=== PATIENT | female | born 1975 | race Caucasian/White ===

== ENCOUNTER 2023-02-14 07:47 | Outpatient (OUT) | payer OTHER, SELFPAY ==
[2023-02-14 08:41] LABS: D Dimer 0.39 mg/L FEU (<=0.59)
== END 2023-02-14 07:48 | disposition home or self-care (01) ==
LOC: LAB 07:51
PROVIDERS: PCP Internal Medicine; Visit Provider Internal Medicine
DX: M79.605 Pain in left leg (principal)
CPT/HCPCS: 36415; 85378

== ENCOUNTER 2024-12-23 13:50 | Outpatient (OUT) | payer OTHER, SELFPAY ==
--- OUTSIDE RECORDS SUMMARY | 2020-07-21 04:30 | XMS_ITS | Continuity of Care Document ---
Author Organization [facility] Address [address] [place] [address] Phone Care Team Providers Care Unit Technician Name Role Phone Regan Bhatti Unavailable Unavailable [...] Diagnoses Date Provider Providers Copied on Encounter [facility], [address] [place] [address], [id number], [place] tel:[phone] COVID ECHD No Information Fredis Bee. [address] [place], [place], [id number], [place]. tel:[phone] [facility], [address] [place] [address], [id number], tel:[phone] COVID ECHD No Information Fredis Bee. [address] [place], [place], [id number], [place]. tel:[phone] OFFICE/OUTPATI ENT VISIT, [facility], [address] [place], [place], [id number], [place] tel:[phone] [facility] No Information Visci DO Regan. [address] [place], [place], [id number], [place]. tel:[phone] OFFICE/OUTPATI ENT VISIT, [facility], [address] [place], [place], [id number], [place] tel:[phone] [facility] No Information Visci DO Spears. [address] [place], [place], [id number], [place]. tel:[phone] [facility], [address] [place], [place], [id number], [place] tel:[phone] [facility] No Information Visci DO Regan. [address] [place], [place], [id number], [place]. tel:[phone] [facility], [address] [place], [id number], [place] tel:[phone] [facility] No Information Visci DO Spears. [address] [place], [place], [id number], [place]. tel:[phone] OFFICE/OUTPATI ENT VISIT, [facility], [address] [place], [place], [id number], [place] tel:[phone] [facility] No Information Visci DO Spears. [address] [place], [place], [id number], [place]. tel:[phone] Family History Family Member Type Diagnosis Age [...] Record Payers Payer name Insurance type Covered green party ID Carlos michael(s) [employer] CI [id number] [employer] [id number] [employer] [id number] Social History Type Description Quantity Date Captured [...]
--- OUTSIDE RECORDS SUMMARY | 2024-12-23 13:52 | XMS_ITS | Clinical Summary ---
Author Organization [facility] Address [address] [place] [address] Care Team Providers Care Cloth Designer Name Role Phone Mckay Leo DO Primary Care Provid er Allergies No known active allergies Medications FLUTICASONE PROPIONATE NASAL Use in the nose. Active fluticasone-salme terol (ADVAIR DISKUS) 500-50 mcg/dose dsdv Inhale 1 Puff as instructed twice daily. Active montelukast (SINGULAIR) 10 mg tablet Take 10 mg by mouth daily at bedtime. Active tiotropium bromide (SPIRIVA RESPIMAT INHALATION) Inhale as instructed. Active mv-min/iron/folic /calcium/vitK (WOMEN'S MULTIVITAMIN ORAL) Take by mouth. Activ e Immunizations Immunization Administration Dates Next Due hepatitis B (HepB) vaccine, 3-dose series, age 20+ yr (ENGERIX-B, RECOMBIVAX HB) 07/28/2010,01/05/2010,12/07/2009 influenza (IIV4) vaccine, ag e 6 mo - 64 yr, quadrivalent, PF (AFLURIA, FLUARIX, FLULAVAL, FLUZONE) 05/02/2021,07/01/2019 tetanus diphtheria (Td) vacc ine, adult, unspecified formulation 03/12/2002 Family History Medical History Relation Comments Cancer Father Hyperlipidemia Father Prostate Cancer Father Diabetes Maternal Grandmother Diabetes Mother Diabetes Paternal Grandfather Relation Status Comments Father Maternal Grandmother Mother Paternal Grandfather Social History Tobacco Use Types Packs/Day Years Used Date Smoking Tobacco: Never Smokeless Tobacco: Never Alcohol Use Standard Drinks/Week Comments Not Currently 0 (1 standard drink = 0.6 oz pur e alcohol) Area Deprivation Index Answer Date Jared rded National Score (1-100), lower number is lower ri sk 64 07/08/2022 State Score (1-10), lower number is lower risk N ot on file 07/08/2022 Data from: https://www.neighborhoodatlas.medicine.[facility]/. Last address used for calculation [address] 07/08/2022 Comments No Sex and Gender Information Value Date Recorded Sex Assigned at Not on file Legal Sex Female 9:51 AM EDT Gender Identity Not on file Sexual Orientation Not on file Last Filed Vital Signs Vital Sign Reading Time Taken Comments Blood Pressure 133/74 12/12/2021 11:14 AM EDT Pulse 76 12/12/2021 11:14 AM EDT Temperature 36.6 C (97.8 F) 12/12/2021 11:14 AM EDT Respiratory Rate 18 12/12/2021 11:14 AM EDT Oxygen Saturation 99% 12/12/2021 11:14 AM EDT Inhaled Oxygen Concentration - - Weight 81.5 kg (179 lb 9.6 oz) 12/12/2021 11:14 AM EDT Height 165.1 cm (5' 5 ) 12/12/2021 11:14 AM EDT Body Mass Index 29.89 12/12/2021 11:14 AM EDT Plan of Treatment Health Maintenance Due Date Last Done Comments Anxiety Screening 1993 Depression Screening 1993 HIV Screening 1993 Hepatitis C Screening 1993 Cervical Cancer Screening 01/13/1996 DTaP,Tdap,Td Vaccine (1 - Tdap) 03/13/2002 [address] Colonography 01/13/2020 Cologuard (FIT-DNA) 01/13/2020 Colonoscopy 01/13/2020 Colorectal Cancer Screening 01/13/2020 Fecal Occult Blood 01/13/2020 Lipid Screening 01/13/2020 Sigmoidoscopy 01/13/2020 Covid-19 Vaccine ( season) 2024 05/02/2021, 07/21/2020, 06/23/2020 Diabetes Screening 12/12/2024 12/12/2021 Influenza Vaccine (#1) 2025 05/02/2021, 2019 Hepatitis B Vaccine Completed 07/28/2010, 01/05/2010, 12/07/2009 Procedures Procedure Name Priority Date/Time Associated Diagnosis Comments COMPREHENSIVE METABOLIC PANEL Routine 12/12/2021 11:10 AM EDT Neutrophilia from Last 3 Months or Most Recently Relevant to Health Maintenance Results * COMP METABOLIC PANEL (12/12/2021 11:10 AM EDT) Pathologist [facility] Protein, Total 7.9 6.3 - 8.0 g/dL 12/12/2021 11:50 AM EDT [facility] Albumin 4.8 3.9 - 4.9 g/dL 12/12/2021 11:50 AM EDT [facility] Calcium, Total 10.0 8.5 - 10.2 mg/dL 12/12/2021 11:50 AM EDT [facility] Bilirubin, Total 0.2 0.2 - 1.3 mg/dL 12/12/2021 11:50 AM EDT [facility] Alkaline Phosphatase 71 34 - 123 U/L 12/12/2021 11:50 AM EDT [facility] AST 20 13 - 35 U/L 12/12/2021 11:50 AM EDT [facility] ALT 22 7 - 38 U/L 12/12/2021 11:50 AM EDT [facility] Glucose 86 74 - 99 mg/dL 12/12/2021 11:50 AM EDT [facility] Comment: The [place] Diabetes Association (ADA) provides guidance for cutoff values for fasting glucose and random glucose. The ADA defines fasting as no caloric intake for at least 8 hours. Fasting plasma glucose results between 100 to 125 mg/dL indicate increased risk for diabetes (prediabetes). Fasting plasma glucose results greater than or equal to 126 mg/dL meet the criteria for diagnosis of diabetes. In the absence of unequivocal hyperglycemia, results should be confirmed by repeat testing. In a patient with classic symptoms of hyperglycemia or hyperglycemic crisis, random plasma glucose results greater than or equal to 200 mg/dL meet the criteria for diagnosis of diabetes. Reference: Standards of Medical Care in Diabetes 2016, [place] Diabetes Association. Diabetes Care. 2016.39(Suppl 1). BUN 11 7 - 21 mg/dL 12/12/2021 11:50 AM EDT [facility] Creatinine 0.80 0.58 - 0.96 mg/dL 12/12/2021 11:50 AM EDT [facility] Sodium 136 136 - 144 mmol/L 12/12/2021 11:50 AM EDT [facility] Potassium 4.1 3.7 - 5.1 mmol/L 12/12/2021 11:50 AM EDT [facility] Chloride 101 97 - 105 mmol/L 12/12/2021 11:50 AM EDT [facility] CO2 26 22 - 30 mmol/L 12/12/2021 11:50 AM EDT [facility] Anion Gap 9 9 - 18 mmol/L 12/12/2021 11:50 AM EDT [facility] Estimated Glomerular Filtration Rate 92 >=60 mL/min/1.7 3m 12/12/2021 11:50 AM EDT [facility] Comment:Estimated Glomerular Filtration Rate (eGFR) is calculated using the 2020 CKD-EPI creatinine equation. This equation utilizes serum creatinine, sex, and age as parameters. The creatinine assay has traceable calibration to isotope dilution- mass spectrometry. Refer to KDIGO guidelines for clinical interpretation. In patients with unstable renal function, e.g. those with acute kidney injury, the eGFR may not accurately reflect actual GFR. Blood BLOOD SPECIMEN / Unknown Venipuncture / Unknown 12/12/2021 11:10 AM EDT 12/12/2021 11:10 AM EDT us Basil Seay MD LABORATORY Final Result [facility] [address] [place] [address] from Last 3 Months or Most Recently Relevant to Health Maintenance Insurance [employer] PPO Care Teams Cloth Designer Relationship Specialty Start Date End Date Mckay Leo DO [address] [place] [address] PCP - General Family Medicine 12/04/21
--- OUTSIDE RECORDS SUMMARY | 2024-12-23 13:52 | XMS_ITS | Encounter Summary ---
Author Organization [facility] Address [address] [facility] [place] [address] Care Team Providers Care Pension Examiner Name Role Phone Mckay Leo DO Primary Care Provider [phone] Dallin Diana DO Unavailable [phone] Dallin Strauss DO Unavailable [phone] Encounter Details Date Type Department Care Team (Late st Contact Info) Description 09/11/2024 Abstract [facility] [address] [place] [address] Marialuisa Garland DO [address] [place] [address] Social History Tobacco Use Types Packs/Day Years Used Date Smoking Tobacco: Never Smokeless Tobacco: Never Alcohol Use Standard Drinks/Week Comments Not Currently 0 (1 standard drink = 0.6 oz pur e alcohol) Comments Unknown Sex and Gender Information Value Date Recorded Sex Assigned at Not on file Legal Sex Female 7:03 PM EDT Gender Identity Not on file Sexual Orientation Not on file documented as of this encounter Plan of Treatment Upcoming Encounters Date Type Department Care Team (Late st Contact Info) Description 02/25/2025 3:45 PM EDT Office Visit [facility] [address] [place] [address] Marialuisa Garland, DO [address] [place] [address] 05/25/2025 8:45 AM EST Office Visit [facility] [place] [address] [place] [address] Dallni Strauss, DO [address] [place] [address] documented as of this encounter Visit Diagnoses Not on filedocumented in this encounter Care Teams Pension Examiner Relationship Specialty Start Date End Date Mckay Leo, DO [address] [place] [address] PCP - General Family Medicine 10/16/22 Dallin Diana, DO [address] [place] [address] Referring Physician Internal Medicine 07/22/24 Dallin Strauss, DO [address] [place] [address] Otolaryngology 07/22/24 documented as of this encounter
--- OUTSIDE RECORDS SUMMARY | 2024-12-23 13:52 | XMS_ITS | Clinical Summary ---
Author Organization [facility] Address [address] [facility] [place] [address] Care Team Providers Care Hotel Operation Manager Name Role Phone Mckay Leo DO Primary Care Provider [phone] Dallin Diana DO Unavailable [phone] Dallin Strauss DO Unavailable Allergies Active Allergy Reactions Criticality Noted Date Comments Cephalexin Rash Low 03/29/2023 Medications albuterol HFA (Ventolin HFA) 90 mcg/act inhalerIndicatio ns:Moderate persistent asthma without complication (HCC) Inhale 2 puffs every 4 (four) hours if needed for wheezing or shortness of breath 18 g 5 4 Active Albuterol-Budeso nide (Airsupra) 90-80 MCG/ACT aerosolIndicatio ns:Moderate persistent asthma without complication (HCC) Inhale 2 puffs every 4 (four) hours if needed (shortness of breath) 10.7 g 5 4 Active montelukast (Singulair) 10 MG tablet 4 Active fluticasone (Flonase) 50 MCG/ACT nasal spray 1 (one) time each day at the same time Active zolpidem (Ambien) 5 MG tablet Take 5 mg by mouth as needed at bedtime for sleep 5 Active albuterol (2.5 MG/3ML) 0.083% nebulizer solutionIndicati ons:Moderate persistent asthma without complication (HCC) Take 3 mL (2.5 mg) by nebulization 4 (four) times a day as needed for wheezing or shortness of breath 225 mL 5 5 026 Active Fluticasone-Umec lidin-Vilant (Trelegy Ellipta) 200-62.5-25 MCG/ACT aerosol powderIndication s:Moderate persistent asthma without complication (HCC) Inhale 1 puff Daily 3 each 3 5 Active Active Problems No known active problems Resolved Problems Problem Noted Date Diagnosed Date Resolved Date Asthma 07/22/2024 07/22/2024 Essential thrombocythemia 07/22/2024 Leukocytosis 07/22/2024 07/22/2024 Obesity (BMI 30-39.9) 07/22/20242024 Thyroid nodule 07/22/2024 07/22/2024 Overview (07/22/2024): US: right 2.3cm predominantly solid, 1.2cm solid, 1.4cm cystic, left anechoic 6mm, 7mm, and 4mm nodules. - 06/2024 Encounters Date Type Department Care Team Description 11/03/2024 8:30 AM EDT Office Visit [facility] [place] [address] [place] [phone] Dallin Strauss, Multiple thyroid nodules (Primary Dx); Status post partial thyroidectomy 11/03/2024 Bamboo flowsheet [facility] [place] [address] [place] [phone] Dallin Strauss, 11/03/2024 Travel 09/30/2024 Refill [facility] [address] [place] [address] Marialuisa Garland DO Moderate persistent asthma without complication (HCC) from Last 3 Months Immunizations Immunization Administration Dates Next Due Hep B, adult 07/28/2010,01/05/2010,12/07/2009 Influenza, Injectable, MDCK, preservative free 04/08/2018 Influenza, injectable, quadr ivalent, preservative free 03/22/2023,08/03/2022,05/02/2021,2019,07/01/2019 Influenza, seasonal, injecta ble, preservative free 04/06/2024 Td (adult), unspecified 03/12/2002 Family History Medical History Relation Name Comments Diabetes Mother Herminia Medeiros Relation Name Status Comments Mother Herminia Medeiros Social History Tobacco Use Types Packs/Day Years Used Date Smoking Tobacco: Never Smokeless Tobacco: Never Tobacco Cessation:Counseling Given: Not Answered Alcohol Use Standard Drinks/Week Comments Not Currently 0 (1 standard drink = 0.6 oz pur e alcohol) Comments Unknown Sex and Gender Information Value Date Recorded Sex Assigned at Not on file Legal Sex Female 7:03 PM EDT Gender Identity Not on file Sexual Orientation Not on file Last Filed Vital Signs Vital Sign Reading Time Taken Comments Blood Pressure 118/70 08/02/2022 12:00 PM EST Pulse 113 08/13/2024 3:44 PM EST Temperature - - Respiratory Rate - - Oxygen Saturation 98% 08/13/2024 3:44 PM EST Inhaled Oxygen Concentration - - Weight 84.8 kg (187 lb) 11/03/2024 8:19 AM EDT Height 162.6 cm (5' 4 ) 11/03/2024 8:19 AM EDT Body Mass Index 32.1 11/03/2024 8:19 AM EDT Plan of Treatment Upcoming Encounters Date Type Department Care Team (Late st Contact Info) Description 02/25/2025 3:45 PM EDT Office Visit [facility] [address] [place] [address] Marialuisa Garland DO [address] [place] [address] 05/25/2025 8:45 AM EST Office Visit [facility] [place] [address] [place] [address] Dallin Strauss, DO [address] [place] [address] Health Maintenance Due Date Last Done Comments CT Colonography 1975 Colonoscopy 1975 Colorectal Cancer Screening 1975 FIT-DNA 1975 FIT 1975 FOBT 1975 Sigmoidoscopy 1975 Pap Smear 01/13/1996 Cervical Cancer Screening 2005 HPV/Cotest 2005 Mammogram 01/06/2020 01/05/2019, 11/28/2018 Influenza Vaccine (#1) 2025 , 03/22/2023, 08/03/2022, Additional history exists Procedures Procedure Name Priority Date/Time Associated Diagnosis Comments TSH Routine 10/27/2024 7:46 AM EDT H/O partial thyroidectomy T4 (THYROXINE), TOTAL Routine 10/27/2024 7:46 AM EDT H/O partial thyroidectomy T3, TOTAL Routine 10/27/2024 7:46 AM EDT H/O partial thyroidectomy BI MAMMOGRAM DIAGNOSTIC BILATERAL Routine 01/05/2019 12:00 PM EDT Encounter for other screening for malignant neoplasm of breast Benign neoplasm of unspecified breast from Last 3 Months or Most Recently Relevant to Health Maintenance Results * T3 (10/27/2024 7:46 AM EDT) TRIIODOTHYRONINE (T3) TOTAL 1.36 0.87 - 1.78 ng/mL 10/27/2024 1:01 PM EDT [facility] Other Topography unknown / Unknown 10/27/2024 7:46 AM EDT 10/27/2024 7:46 AM EDT us Dallin Strauss DO LAB BLOOD ORDERABLES Final Result Performing Organization Address [facility]/ZIP Co de Phone Number [address] [address], [facility] [address] [place] [address] * TSH (10/27/2024 7:46 AM EDT) THYROID STIMULATING HORMONE 2.52 0.45 - 5.33 u[iU]/mL 10/27/2024 12:56 PM EDT [facility] Other Topography unknown / Unknown 10/27/2024 7:46 AM EDT 10/27/2024 7:46 AM EDT Dallin Strauss DO LAB BLOOD ORDERABLES Final Result Performing Organization Address [facility] Co de Phone Number [address] [address], [facility] [address] [place] [address] * T4 (10/27/2024 7:46 AM EDT) THYROXINE (T4) TOTAL 11.77 5.39 - 11.82 ug/dL 10/27/2024 12:58 PM EDT [facility] Other Topography unknown / Unknown 10/27/2024 7:46 AM EDT 10/27/2024 7:46 AM EDT us Dallin Strauss DO LAB BLOOD ORDERABLES Final Result Performing Organization Address City/[facility]/ZIP Co de Phone Number [address] [address], [facility] [address] [place] [address] * Bilateral diagnostic mammogram (01/05/2019 12:00 PM EDT) Anatomical Region Laterality Modality Breast Bilateral Mammography Narrative 01/05/2019 12:00 PM EDT PERFORMED AT [facility] LOCATION:[id number] Procedure Note CONVERSION, GENERIC / Mckay Leo, DO - 12/14/2022 PERFORMED AT [facility] LOCATION:[id number] Mckay Leo DO IMG BI PROCEDURES Final Re sult from Last 3 Months or Most Recently Relevant to Health Maintenance Insurance [employer] Care Teams Hotel Operation Manager Relationship Specialty Start Date End Date Mckay Leo, [address] [facility] [address] [place] [id number] PCP - General Family Medicine 10/16/22 Dallin Diana, [address] [facility] [address] [place] [address] Referring Physician Internal Medicine 07/22/24 Dallin Strauss DO [address] [place] [address] Otolaryngology 07/22/24
--- OUTSIDE RECORDS SUMMARY | 2024-12-23 13:52 | XMS_ITS | Encounter Summary ---
Author Organization [facility] Address [address] [place] [address] Care Team Providers Care Doctor Of Naturopathic Medicine Name Role Phone SatishMckay abad Alex DO Primary Care Provid er Source Comments In the event this information is protected by the Federal Confidentiality of Alcohol and Drug AbusePatient Records regulations: The Federal rules restrict any use of the information to criminally investigate or prosecute any alcohol or drug abuse patient.[facility] Encounter Details Date Type Department Care Team (Latest Contact Info) Description 12/04/2021 H&P External-NonCCF Provider, External, PA-C Do not enter address information under generic External Provider. Social History Tobacco Use Types Packs/Day Years Used Date Smoking Tobacco: Never Assessed Comments Unknown Sex and Gender Information Value Date Recorded Sex Assigned at Not on file Legal Sex Female 9:51 AM EDT Gender Identity Not on file Sexual Orientation Not on file documented as of this encounter Plan of Treatment Not on file documented as of this encounter Visit Diagnoses Not on filedocumented in this encounter Care Teams Doctor Of Naturopathic Medicine Relationship Specialty Start Date End Date Mckay Leo DO [address] [place] [address] PCP - General Family Medicine 12/04/21 documented as of this encounter
== END 2024-12-23 13:51 | disposition home or self-care (01) ==
LOC: US 13:51
PROVIDERS: PCP Internal Medicine; Visit Provider Nurse Practitioner Family
DX: M79.89 Other specified soft tissue disorders (principal); M79.661 Pain in right lower leg
CPT/HCPCS: 93971

== ENCOUNTER 2025-05-18 08:13 | Outpatient (OUT) | payer OTHER, SELFPAY ==
--- OUTSIDE RECORDS SUMMARY | 2020-07-21 03:30 | XMS_ITS | Continuity of Care Document ---
Author Organization [facility] Address [address] [place] [address] Phone Care Team Providers Care Elevator Serviceman Name Role Phone Regan Bhatti Unavailable Unavailable Procedures Procedure Date Moderna COVID-19 Vaccine Moderna COVID Vaccine Admin Dose 2 Moderna COVID Vaccine Admin Dose 1 Moderna COVID-19 Vaccine HEP B VACCINE, ADULT, IM OFFICE/OUTPATIENT VISIT, EST HEP B VACCINE, ADULT, IM OFFICE/OUTPATIENT VISIT, EST TB INTRADERMAL TEST TB INTRADERMAL TEST HEP B VACCINE, ADULT, IM OFFICE/OUTPATIENT VISIT, EST Advance Directives Directive Yes / No Effective Date File Name No Information Encounters Encounter Description Practice Location Reason(s) For Visit Diagnoses Date Provider Providers Copied on Encounter [facility], [address] [place] [address], [id number], [place] tel:[phone] COVID ECHD No Information Fredis Bee. [address] [place], [place], [id number], [place]. tel:[phone] [facility], [address] [place] [address], [id number], tel:[phone] COVID ECHD No Information Fredis Bee. [address] [place], [place], [id number], [place]. tel:[phone] OFFICE/OUTPATI ENT VISIT, [facility], [address] [place], [place], [id number], [place] tel:[phone] [facility] No Information Visci DO Regan. [address] [place], [place], [id number], [place]. tel:[phone] OFFICE/OUTPATI ENT VISIT, [facility], [address] [place], [place], [id number], [place] tel:[phone] [facility] No Information Visci DO Spears. [address] [place], [place], [id number], [place]. tel:[phone] [facility], [address] [place], [place], [id number], [place] tel:[phone] [facility] No Information Visci DO Regan. [address] [place], [place], [id number], [place]. tel:[phone] [facility], [address] [place], [place], [id number], [place] tel:[phone] [facility] No Information Visci DO Spears. [address] [place], [place], [id number], [place]. tel:[phone] OFFICE/OUTPATI ENT VISIT, [facility], [address] [place], [place], [id number], [place] tel:[phone] [facility] No Information Visci DO Spears. [address] [place], [place], [id number], [place]. tel:[phone] Family History Family Member Type Diagnosis Age At Onset No Information Immunizations Vaccine Date Status Comments Moderna COVID administered Source: New Im munization Record Moderna COVID administered Source: New Im munization Record Hep B (adult) administered Source: New Im munization Record Hep B (adult) administered Source: New Im munization Record Hep B (adult) administered Source: New Im munization Record Payers Payer name Insurance type Covered libertarian ID Carlos michael(s) [employer] [id number] [employer] CI [id number] [employer] CI [id number] Social History Type Description Quantity Date Captured Comments Alcohol Use Details Unknown Caffeine Use Details Unknown Tobacco Use Status No Information Smoking Status No Information Sex Female Sexual Orientation Straight or heterosexual Gender Identity Female Chief Complaint And Reason For Visit No Information Reason For Referral Reason For Referral No Information History Of Present Illness Encounter Date Complaint History Of Prese nt Illness No Information Functional Status Date Functional Assessmen t No Information Instructions Date Instruction Additional Infor mation No Information Assessments Type Assessment Date No Information Patient Care Teams Name Effective Dates (start - stop) Status Members No Information
--- OUTSIDE RECORDS SUMMARY | 2025-05-18 08:17 | XMS_ITS | Clinical Summary ---
Author Organization [facility] Address [address] [place] [id number] Care Team Providers Care Topography Technician Name Role Phone Mckay Leo Primary Care Provid er Allergies No known active allergies Medications MedicationSigDispense QuantityRefillsLast FilledStart DateEnd DateStatus FLUTICASONE PROPIONATE NASAL Use in the nose.Active fluticasone-salmeterol (ADVAIR DISKUS) 500-50 mcg/dose dsdv Inhale 1 Puff as instructed twice daily.Active montelukast (SINGULAIR) 10 mg tablet Take 10 mg by mouth daily at bedtime.Active tiotropium bromide (SPIRIVA RESPIMAT INHALATION) Inhale as instructed.Active mv-min/iron/folic/calcium/vitK (WOMEN'S MULTIVITAMIN ORAL) Take by mouth.Active Immunizations ImmunizationAdministration DatesNext Duehepatitis B (HepB) vaccine, 3-dose series, age 20+ yr (ENGERIX-B, RECOMBIVAX HB)07/28/2010,01/05/2010,12/07/2009 influenza (IIV4) vaccine, age 6 mo - 64 yr, quadrivalent, PF (AFLURIA, FLUARIX, FLULAVAL, FLUZONE)05/02/2021,07/01/2019tetanus diphtheria (Td) vaccine, adult, unspecified rwmufrhursn72/03/2002 Family History Medical HistoryRelationCommentsCancerFatherHyperlipidemiaFatherProstate Cancer FatherDiabetesMaternal GrandmotherDiabetesMotherDiabetesPaternal Grandfather RelationStatusCommentsFatherMaternal GrandmotherMotherPaternal Grandfather Social History Tobacco UseTypesPacks/DayYears UsedDateSmoking Tobacco: NeverSmokeless Tobacco: NeverAlcohol UseStandard Drinks/WeekCommentsNot Currently0 (1 standard drink = 0.6 oz pure alcohol)Area Deprivation IndexAnswerDate RecordedNational Score (1- 100), lower number is lower yghn522507/08/2022State Score (1-10), lower number is lower riskNot on file3Data from: https://www.neighborhoodatlas.medicine.[facility].edu/. Last address used for lav[address] W3CommentsNoSex and Gender InformationValueDate RecordedSex Assigned at BirthNot on fileLegal SexFemale 12/04/2021 9:51 AM EDTGender IdentityNot on fileSexual OrientationNot on file Last Filed Vital Signs Vital SignReadingTime TakenCommentsBlood Barsnkap235/7407 11:14 AM EDT Pzlkc038212/12/2021 11:14 AM RVZPzwwmbnheyg36.6 ??C (97.8 ??F)12/12/2021 11:14 AM EDTRespiratory Iful629512/12/2021 11:14 AM EDTOxygen Ctvjyuevag24%12/12/2021 11:14 AM EDTInhaled Oxygen Concentration--Wdithx86.5 kg (179 lb 9.6 oz)12/12/2021 11:14 AM JTAJgridf785.1 cm (5' 5 )12/12/2021 11:14 AM EDTBody Mass Index29.89 12/12/2021 11:14 AM EDT Plan of Treatment Health MaintenanceDue DateLast DoneCommentsAnxiety Hldzvjsup90/05/1993Depression Gysorinih46/05/1993HIV Kexlvrahb13/05/1993Hepatitis C Lfwdngmlz51/05/1993 Cervical Cancer Pbvjvbwoj80/05/1996DTaP,Tdap,Td Vaccine (1 - Tdap)03/13/2002 03/12/2002Mammogram Dbwolkmxp63/05/2015CT Hguucncbddyn29/05/2020Cologuard (FIT-DNA)01/13/20202952Bsvuseolfgz28/05/2020Colorectal Cancer Oknomeiwl31/05/2020 Fecal Occult Blood01/13/2020Lipid Iixvhzwap26/05/2254Otsjszbjxaxhi77/05/2020 Diabetes Qaywlzupb65/05/17363412/12/2021neumococcal Vaccine: 50+ (1 of 1 - PCV) 2025Shingrix Vaccine (1 of 2)5Covid-19 Vaccine (4 - season)/, 07/21/2020, 06/23/2020Influenza Vaccine (#1) /, 07/01/2019Hepatitis B McxepsnMntoohsou73/18/2011, 01/05/2010, 12/07/2009 Procedures Procedure NamePriorityDate/TimeAssociated DiagnosisCommentsCOMPREHENSIVE METABOLIC JWVBJDziheck69/05/2022 11:10 AM EDT Neutrophilia from Last 3 Months or Most Recently Relevant to Health Maintenance Results * COMP METABOLIC PANEL (12/12/2021 11:10 AM EDT)ComponentValueRef RangeTest MethodAnalysis TimePerformed AtPathologist SignatureProtein, Total7.96.3 - 8.0 g/dL12/12/2021 11:50 AM [facility]TNORTHCOAST [facility] LABAlbumin4.83.9 - 4.9 g/dL12/12/2021 11:50 AM EDTNORTUN[facility] LABCalcium, Total10.08.5 - 10.2 mg/dL12/12/2021 11:50 AM EDTNORTHCOAST [facility] LABBilirubin, Total0.20.2 - 1.3 mg/dL12/12/2021 11:50 AM [facility] LABAlkaline Axhmiggobow8594 - 123 U/L12/12/2021 11:50 AM EDTNOR[facility]CK[facility] ZVHVYC6189 - 35 U/L12/12/2021 11:50 AM [facility]TNORT[facility] FIZSKF925 - 38 U/L12/12/2021 11:50 AM EDT [facility] MMDWmuewgj1822 - 99 mg/dL12/12/2021 11:50 AM [facility] LABComment: The [place] Diabetes Association (ADA) provides guidance for cutoff values for fasting glucose andrandom glucose. The ADA defines fasting as no [...] Standards of Medical Care in Diabetes 2016, [place] [employer]. Diabetes Care. 2016.39(Suppl 1). FHF789 - 21 mg/dL12/12/2021 11:50 AM [facility] LAB Creatinine0.800.58 - 0.96 mg/dL12/12/2021 11:50 AM [facility] AZDYqjdzb252159 - 144 mmol/L12/12/2021 11:50 AM [facility] LABPotassium4.13.7 - 5.1 mmol/L12/12/2021 11:50 AM [facility] ZKCNnctntpi06711 - 105 mmol/L12/12/2021 11:50 AM [facility] LJHJE97225 - 30 mmol/L12/12/2021 11:50 AM [facility] LABAnion Gap99 - 18 mmol/L12/12/2021 11:50 AM [facility] LABEstimated Glomerular Filtration Rate92 >=60 mL/min/1.73m 12/12/2021 11:50 AM [facility] LABComment:Estimated Glomerular Filtration Rate (eGFR) is calculated using the 2020 CKD-EPI creatinine equation. This equation utilizes serum creatinine, sex, and age as parameters. The creatinine assay has traceable calibration to isotope dilution- mass spectrometry. Refer to KDIGO guidelines for clinical interpretation. In patients with unstable renal function, e.g. those with acute kidney injury, the eGFRmay not accurately reflect actual GFR.Specimen (Source)Anatomical Location / LateralityCollection Method / VolumeCollection TimeReceived TimeBloodBLOOD SPECIMEN / UnknownVenipuncture / Yvsmzds6812/12/2021 11:10 AM EDT12/12/2021 11:10 AM EDT Narrative Authorizing ProviderResult TypeResult StatusBrian Regan Seay MDLABORATORY Final ResultPerforming OrganizationAddressCity/State/ZIP CodePhone Number [facility] [address] [place] [address] from Last 3 Months or Most Recently Relevant to Health Maintenance Insurance Care Teams Team MemberRelationshipSpecialtyStart DateEnd Date Mckay Leo DO [address] [place] [address] PCP - GeneralFamily Medicine12/04/21
--- OUTSIDE RECORDS SUMMARY | 2025-05-18 08:17 | XMS_ITS | Clinical Summary ---
Author Organization [facility] Address [address] [facility] [place] [address] Care Team Providers Care Newspaper Delivery Driver Name Role Phone Mckay Leo DO Primary Care Provider [phone] Dallin Diana DO Unavailable Dallin Strauss DO Unavailable Allergies Active AllergyReactionsCriticalityNoted DlnkCqgennvhVxbovjhhtiBxpuMpl48/20/2023 Medications MedicationSigDispense QuantityRefillsLast FilledStart DateEnd DateStatus montelukast (Singulair) 10 MG tablet 4Active fluticasone (Flonase) 50 MCG/ACT nasal spray 1 (one) time each day at the same timeActive zolpidem (Ambien) 5 MG tablet Take 5 mg by mouth as needed at bedtime for sleep5Active albuterol (2.5 MG/3ML) 0.083% nebulizer solution Indications:Moderate persistent asthma without complication (HCC)Take 3 mL (2.5 mg) by nebulization 4 (four) times a day as needed for wheezing or shortness of breath 225 mL 503/506Active Sslpstigspj-Zqgwjvxxk-Ciwfat (Trelegy Ellipta) 200-62.5-25 MCG/ACT aerosol powder Indications:Moderate persistent asthma without complication (HCC)Inhale 1 puff Daily 3 each 5Active Albuterol-Budesonide (Airsupra) 90-80 MCG/ACT aerosol Indications:Moderate persistent asthma without complication (HCC)Inhale 2 puffs every 4 (four) hours if needed (shortness of breath) 10.7 g 5Active azithromycin (Zithromax) 250 MG tablet Indications:Moderate persistent asthma without complication (HCC)Take 2 by mouth today then 1 daily for 4 days 6 tablet 5Active Active Problems No known active problems Resolved Problems ProblemNoted DateDiagnosed DateResolved KjwcCehkbj13Essential grjcietcqgmdoxc66LeukocytosisObesity (BMI 30-39.9)Thyroid uevqxs00 Overview (07/22/2024): US: right 2.3cm predominantly solid, 1.2cm solid, 1.4cm cystic, left anechoic 6mm, 7mm, and 4mm nodules. - 06/2024 Encounters DateTypeDepartmentCare HjqsQaricabmjgr27/18/2025 3:45 PM EDTOffice Visit [facility] [address] [place] [phone] Marialuisa Garland DO Moderate persistent asthma without complication (HCC)02/25/2025amboo flowsheet [facility] [address] [place] [phone] Marialuisa Garland DO 09/18/2025Travelfrom Last 3 Months Immunizations ImmunizationAdministration DatesNext DueHep B, adult07/28/2010,01/05/2010, 12/07/2009Influenza, Injectable, MDCK, preservative free04/08/2018Influenza, injectable, quadrivalent, preservative free03/22/2023,08/03/2022,05/02/2021, 04/16/2020,07/01/2019Influenza, seasonal, injectable, preservative free 04/06/2024Td (adult), /03/2002 Family History Medical HistoryRelationNameCommentsDiabetesMotherDorothy BergerRelationName StatusCommentsMotherDorothy Medeiros Social History Tobacco UseTypesPacks/DayYears UsedDateSmoking Tobacco: NeverSmokeless Tobacco: Never Tobacco Cessation:Counseling Given: Not Answered Alcohol UseStandard Drinks/WeekCommentsNot Currently0 (1 standard drink = 0.6 oz pure alcohol)CommentsUnknownSex and Gender InformationValueDate Recorded Sex Assigned at BirthNot on fileLegal LsaPqxmvz18/15/2023 7:03 PM EDTGender IdentityNot on fileSexual OrientationNot on file Last Filed Vital Signs Vital SignReadingTime TakenCommentsBlood Tmmygnsv656/8809 3:45 PM EDT Rvlyf017502/25/2025 3:45 PM EDTTemperature--Respiratory Rate--Oxygen Rkcsmqlowj24% 02/25/2025 3:45 PM EDTInhaled Oxygen Concentration--Hdwxtn98.4 kg (197 lb) 02/25/2025 3:45 PM VAYPhdxsu945.6 cm (5' 4 )11/03/2024 8:19 AM EDTBody Mass Index33.8111/03/2024 8:19 AM EDT Plan of Treatment DateTypeDepartmentCare Team (Latest Contact Info)Hdocdxcawll85/16/2025 8:45 AM ESTOffice Visit [facility] [address] [place] [phone] Dallin Strauss W, DO [address] [place] [address] 08/26/2025 3:45 PM EDTOffice Visit [facility] [address] [place] [address] Marialuisa Garland, DO [address] [place] [address] Health MaintenanceDue DateLast DoneCommentsCT Zlymradhzzfn1975Colonoscopy 1975Colorectal Cancer Bwsrbbayi1975FIT-DNA1975FIT1975 FOBT1975 2224Gjinkosxnkhmg1975Pneumococcal Vaccine: Pediatrics (0 to 5 Years) and At-Risk Patients (6 to 64 Years) (1 of 2 - PCV)1994Pap Smear 01/13/1996Cervical Cancer Alwtpvtjy09/05/2005HPV/Vlgnea4301/12/2005Mammogram , 11/28/2018COVID-19 Vaccine ( season)2025 05/02/2021, 07/21/2020, 06/23/2020Influenza Vaccine (#1), 03/22/2023, 08/03/2022, Additional history exists Procedures Procedure NamePriorityDate/TimeAssociated DiagnosisCommentsBI MAMMOGRAM DIAGNOSTIC DICFPKNTDFuvddbr19/29/2019 12:00 PM EDT Encounter for other screening for malignant neoplasm of breast Benign neoplasm of unspecified breast from Last 3 Months or Most Recently Relevant to Health Maintenance Results * Bilateral diagnostic mammogram (01/05/2019 12:00 PM EDT)Anatomical Region LateralityModalityBreastBilateralMammographySpecimen (Source)Anatomical Location / LateralityCollection Method / VolumeCollection TimeReceived Time Narrative 01/05/2019 12:00 PM EDT PERFORMED AT [facility] LOCATION:[id number] Procedure Note CONVERSION, GENERIC / Mckay Leo DO - 12/14/2022 PERFORMED AT [facility] LOCATION:[id number] Authorizing ProviderResult TypeResult StatusMattmarcial Leo DOIMG BI PROCEDURESFinal Result from Last 3 Months or Most Recently Relevant to Health Maintenance Insurance Care Teams Team MemberRelationshipSpecialtyStart DateEnd Date Mckay Leo DO [address] [facility] [address] [place] [address] PCP - GeneralFamily Medicine10/16/22 Dallin Diana DO [address] [facility] [place] [phone] Referring PhysicianInternal Medicine07/22/24 Dallin Strauss DO [address] [place] [address] Otolaryngology2
[2025-05-18 08:55] LABS: Thyroid Stimulating Hormone 2.018 uIU/mL (0.358-3.740)
== END 2025-05-18 08:14 | disposition home or self-care (01) ==
LOC: LAB 08:14
PROVIDERS: PCP Internal Medicine; Visit Provider Otolaryngology
DX: E89.0 Postprocedural hypothyroidism (principal); E04.2 Nontoxic multinodular goiter
CPT/HCPCS: 36415; 84436; 84443; 84480

== ENCOUNTER 2025-05-19 16:11 | Outpatient (OUT) | payer OTHER, SELFPAY ==
--- NOTE | 2025-05-19 | XR_ITS ---
[facility] [place] [address] Patient Name: ADRIANO BLANCO MRN: [id number] date: 1975 Sex: F Assigned Patient Location: [facility] Current Patient Location: [facility] Accession/Order Number: [id number] Exam Date: 05/19/2025 17:04 Report Date: 05/19/2025 19:08 At the request of: LEROY HAWKINS DO Procedure: XR wrist LT min 3V 3 views of the left wrist CLINICAL HISTORY: pain of left wrist COMPARISON: None FINDINGS: No fracture-dislocation. Joint spaces preserved. Soft tissues are unremarkable. XR/XR wrist LT min 3V IMPRESSION: NO ACUTE OSSEOUS FINDINGS. Impression dictated by: Kris Shea M.D. 05/19/2025 7:08 PM Dictation Location: [place] [address] Electronically authenticated by: [id number] Y Date: 05/19/2025 19:08
--- NOTE | 2025-05-19 | XR_ITS ---
[facility] [place] [id number] Patient Name: ADRIANO BLANCO MRN: [id number] date: 1975 Sex: F Assigned Patient Location: [facility] Current Patient Location: [facility] Accession/Order Number: [id number] Exam Date: 05/19/2025 17:04 Report Date: 05/19/2025 19:09 At the request of: LEROY HAWKINS DO Procedure: XR hand LT min 3V 3 views of the left hand COMPARISON: None REASON FOR EXAM: Pain of the left wrist FINDINGS: No fracture or dislocation identified. Joint spaces are preserved. No significant degenerative change. Soft tissues unremarkable. XR/XR hand LT min 3V IMPRESSION: NO ACUTE BONY INJURY. Impression dictated by: Kris Shea M.D. 05/19/2025 7:09 PM Dictation Location: [place] [address] Electronically authenticated by: [id number] Y Date: 05/19/2025 19:09
== END 2025-05-19 16:12 | disposition home or self-care (01) ==
PROVIDERS: PCP Internal Medicine; Visit Provider Internal Medicine
DX: M25.532 Pain in left wrist (principal); M79.642 Pain in left hand
CPT/HCPCS: 73110; 73130